=== PATIENT | female | born 1940 | race Caucasian/White ===

== ENCOUNTER → 2016-10-09 | Outpatient (CLI) | payer OTHER ==
--- NOTE | 2016-10-09 13:19 | DX ---
Chest 2 views - October 09, 2016, at 1215 hours History: Cough, wheezing, nausea, vomiting. Comparison: November 2015. Findings: Bilateral peribronchial thickening consistent with bronchitis. Linear densities in bilatera l lower lobes, probably representing subsegmental atelectasis. Pleuroparenchymal scarring in the ling rajesh, similar to the previous study. Right humerus fracture with intramedullary ankita and left total brett ulder arthroplasty noted. Heart is normal in size. No pulmonary edema or pneumothorax. Impression: 1. Probable bronchitis with bilateral lower lobe linear atelectasis. 2. No definite focal pneumonia. Findings and recommendations discussed with Dr. Christen Rodrigez at 1310 hours today.
--- NOTE | 2016-10-09 13:20 | DX ---
Single view abdomen at 1220 hours History: Nausea, vomiting, cough. Findings: Moderate stool throughout the colon, consistent with constipation. No fecal impaction. No s mall bowel distention. Previous L3 kyphoplasty. Surgical clips in the gallbladder fossa. Impression: 1. Constipation. 2. No bowel obstruction. Findings and recommendations discussed with Dr. Karin Rodrigez at 1310 hours today.
== END ==
LOC: BMCIMAGING 12:17
PROVIDERS: ATTEND Allergy & Immunology Allergy
DX: R11.2 Nausea with vomiting, unspecified (principal); R05 Cough; K59.00 Constipation, unspecified; R91.8 Other nonspecific abnormal finding of lung field

== ENCOUNTER → 2016-10-24 | Outpatient (CLI) | payer OTHER ==
--- NOTE | 2016-10-24 11:02 | CT ---
CT Brain (Without Contrast) at 1020 hours History: Headache post head trauma, fall. Comparison: None. Technique: Axial computed tomographic images of the brain without contrast. Dose reduction technique s were utilized. Findings: Ventricles, cisterns, and sulci are normal without atrophy, hydrocephalus, midline shift/h erniation, or epidural/subdural hematomas. No acute intraparenchymal hemorrhage, definite infarct, or mass effect. Bone windows demonstrate no displaced fractures. Minimal mucosal thickening in the left sphenoid sinus. Impression: 1. Normal CT brain without contrast. 2. Minimal mucosal thickening left sphenoid sinus. 3. No epidural or subdural hematoma. Findings left with Dr. Opal Herring at 1040 hour, today.
== END ==
LOC: FIMAGING 09:35
PROVIDERS: ATTEND Psychiatry & Neurology Neurology
DX: R11.2 Nausea with vomiting, unspecified (principal); R51 Headache

== ENCOUNTER → 2016-11-07 | Outpatient (CLI) | payer OTHER ==
--- NOTE | 2016-11-07 11:42 | DX ---
Bilateral Shoulder - 4 Views Indication: Evaluate healing of left shoulder arthroplasty and right proximal humerus fracture. Comparison: Left shoulder series dated September 23, 2016 and right proximal humerus fracture dated 2015. Findings: Right: The intramedullary ankita in the right humeral shaft remains well seated with proximal and distal interlocking screws. Minimal bridging callus is developing along the fracture plane. Humeral head no rmally articulates with the glenoid. Left: The left reverse shoulder arthroplasty remains well seated. Healing callus is developing along the lateral margin of the humeral component. Impression: 1. Healing proximal right humerus fracture with well seated intramedullary ankita. 2. Well seated left shoulder reverse arthroplasty with healing callus along the humeral component.
--- NOTE | 2016-11-07 13:49 | DX ---
Chest, PA and Lateral History: Cough x1 week Comparison: October 09, 2006 Findings: Lung volumes remain moderately prominent consistent with COPD/emphysema. Lungs are clear, w ithout infiltrate or consolidation. There is a stable scar at the left cardiac apex. Heart size is no rmal. There is no adenopathy or mass lesion. There is no pleural effusion or pneumothorax. Degenerati ve spurring in the mid and lower thoracic spine is stable and suggestive of DISH. The patient has a l eft total shoulder replacement and a right humeral ankita associated with a chronic fracture deformity. Impression: No evidence for pneumonia. Results called as requested.
== END ==
LOC: BMCIMAGING 10:28
PROVIDERS: ATTEND Orthopaedic Surgery
DX: S42.201D Unspecified fracture of upper end of right humerus, subsequent encounter for fracture with routine healing (principal); Z96.612 Presence of left artificial shoulder joint; R05 Cough; J45.901 Unspecified asthma with (acute) exacerbation

== ENCOUNTER → 2016-11-28 | Outpatient (CLI) | payer OTHER | LOC: BMCIMAGING 15:59 | PROVIDERS: ATTEND Orthopaedic Surgery | DX: Z09 Encounter for follow-up examination after completed treatment for conditions other than malignant neoplasm (principal); Z98.890 Other specified postprocedural states; Z96.612 Presence of left artificial shoulder joint ==

== ENCOUNTER → 2016-12-09 | Outpatient (CLI) | payer OTHER | LOC: BMCIMAGING 13:55 | DX: Z12.31 Encounter for screening mammogram for malignant neoplasm of breast (principal) | CPT/HCPCS: G0202 ==

== ENCOUNTER → 2016-12-11 | Outpatient (CLI) | payer OTHER | LOC: BMCIMAGING 13:38 | PROVIDERS: ATTEND Allergy & Immunology Allergy | DX: R09.81 Nasal congestion (principal) ==

== ENCOUNTER → 2017-01-03 | Outpatient (CLI) | payer OTHER | LOC: BMCIMAGING 12:05 | PROVIDERS: ATTEND Orthopaedic Surgery | DX: M17.11 Unilateral primary osteoarthritis, right knee (principal) ==

== ENCOUNTER → 2017-02-03 | Outpatient (CLI) | payer OTHER | LOC: BMCIMAGING 14:32 | PROVIDERS: ATTEND Allergy & Immunology Allergy | DX: Z13.820 Encounter for screening for osteoporosis (principal); M85.80 Other specified disorders of bone density and structure, unspecified site ==

== ENCOUNTER → 2017-02-06 | Outpatient (CLI) | payer OTHER | LOC: BMCIMAGING 12:24 | PROVIDERS: ATTEND Orthopaedic Surgery | DX: Z47.1 Aftercare following joint replacement surgery (principal); Z96.612 Presence of left artificial shoulder joint; S42.90XD Fracture of unspecified shoulder girdle, part unspecified, subsequent encounter for fracture with routine healing ==

== ENCOUNTER → 2017-05-09 | Outpatient (CLI) | payer OTHER | LOC: BMCIMAGING 11:42 | PROVIDERS: ATTEND Orthopaedic Surgery | DX: Z98.890 Other specified postprocedural states (principal) ==

== ENCOUNTER → 2017-08-22 | Outpatient (CLI) | payer OTHER | LOC: BMCIMAGING 08:16 | PROVIDERS: ATTEND Allergy & Immunology Allergy | DX: R14.0 Abdominal distension (gaseous) (principal); Z90.49 Acquired absence of other specified parts of digestive tract ==

== ENCOUNTER → 2017-09-15 | Outpatient (CLI) | payer OTHER | LOC: BMCIMAGING 13:31 | PROVIDERS: ATTEND Orthopaedic Surgery | DX: Z47.1 Aftercare following joint replacement surgery (principal); Z96.612 Presence of left artificial shoulder joint; Z96.611 Presence of right artificial shoulder joint ==

== ENCOUNTER → 2017-09-22 | Outpatient (CLI) | payer OTHER | LOC: BMCIMAGING 12:19 | PROVIDERS: ATTEND Allergy & Immunology Allergy | DX: Z01.811 Encounter for preprocedural respiratory examination (principal); Z86.79 Personal history of other diseases of the circulatory system ==

== ENCOUNTER → 2017-09-26 | Outpatient (CLI) | payer OTHER | LOC: FIMAGING 11:17 | PROVIDERS: ATTEND Orthopaedic Surgery | DX: Z01.818 Encounter for other preprocedural examination (principal); M17.11 Unilateral primary osteoarthritis, right knee ==

== ENCOUNTER 2017-10-20 11:22 | Inpatient (IN) | payer OTHER ==
--- NOTE | 2017-10-20 07:02 | PDHPUP ---
History & Physical Update H&P update statement: This history and physical update is based on an assessment of the patient which was completed after admission or registration (within 24 hours), but prior to the surgery/procedure.
--- NOTE | 2017-10-20 07:04 | PDIAF ---
- Diagnosis Diagnosis: right knee djd Code Status: Full Code - Medication Management Discharge Medications: Medications to Continue on Transfer Ascorbic Acid [Vitamin C 500 mg (*)] 500 mg PO DAILY 10/07/12 [Last Taken 18:00] Furosemide [Lasix 40 MG (*)] 40 mg PO BID 10/07/12 [Last Taken 09/20/16] Losartan Potassium [Cozaar 50 mg (*)] 50 mg PO HS 10/07/12 [Last Taken 09/19/16] Ranitidine HCl [Ranitidine HCl 150 mg] 150 mg PO BID 10/07/12 [Last Taken ] Acetaminophen [Tylenol 325mg (*)] 650 mg PO Q6 PRN 01/18/13 [Last Taken 18:00] Aspirin EC [Aspirin EC 81 mg (*)] 81 mg PO HS 01/18/13 [Last Taken 09/19/16] Albuterol [Proventil Inhaler HFA (*)] 2 puffs IH Q4 PRN 01/21/13 [Last Taken 08/19 08:00] Loratadine [Claritin 10 mg] 10 mg PO DAILY PRN 01/21/13 [Last Taken 04/13/13] Potassium Cl [Klor-Con 10 meq (RX)] 10 meq PO DAILY 04/06/13 [Last Taken ] Calcium Carbonate [Oyster Shell Calcium 500 mg (*)] 500 mg PO DAILY 08/16/14 [ Last Taken 08/16/14 08:00] Multivitamins [Multivitamin (*)] 1 tab PO DAILY 08/16/14 [Last Taken 08/16/14 08 :00] [place]-3 Fatty Acids [Fish Oil 1000 mg (*)] 1,000 mg PO DAILY 08/16/14 [Last Taken 08/16/14 08:00] Cholecalciferol Vit D3 [Vitamin D3 (*)] 5,000 units PO DAILY 09/21/16 [Last Taken Unknown] Psyllium Husk (with Sugar) [Metamucil Packet] 1 each PO DAILY PRN 09/21/16 [ Last Taken Unknown] Spironolactone [Aldactone] 50 mg PO DAILY 09/21/16 [Last Taken Unknown] Lactulose [Cephulac 20 gm/30 ml oral soln (*)] 20 gm PO TID PRN #0 ml 09/26/16 [ Last Taken Unknown] Magnesium Hydroxide [Milk of Magnesia (*)] 30 ml PO DAILY PRN #0 udcup 09/26/16 [Last Taken Unknown] Ondansetron Odt [Zofran Odt 4 mg (*)] 4 mg PO Q4HRS PRN #0 tab 09/26/16 [Last Taken Unknown] Sennosides/Docusate Sodium [Senokot-S] 1 - 2 tab PO BID #0 tab 09/26/16 [Last Taken Unknown] Fluticasone/Salmeter 250/50Mcg [Advair 250/50 (*)] 1 puffs IH BID 09/23/17 [ Last Taken Unknown] Lidocaine 5% [Lidoderm 5% Patch (*)] 1 ea TD DAILY PRN 09/23/17 [Last Taken Unknown] Methocarbamol [Robaxin 750 mg (*)] 750 mg PO DAILY PRN 09/23/17 [Last Taken Unknown] Mupirocin 2% [Bactroban 2%] 1 marifer NS BID PRN 09/23/17 [Last Taken Unknown] Polyethylene Glycol 3350 [Miralax 17 gm (*)] 17 gm PO BID PRN 09/23/17 [Last Taken Unknown] Promethazine HCl [Phenergan 25mg (*)] 25 mg PO Q6HRS PRN 09/23/17 [Last Taken Unknown] Rosuvastatin Calcium [Crestor 40mg (*)] 40 mg PO HS 09/23/17 [Last Taken Unknown ] Discharge Medications: Refer to the Discharge Home Medication list for PRN reason. - Orders Services needed: Physical Therapy Activity/Weight Bearing Restrictions: wbat. rom as tolerated. daily dressing changes. may shower without bandage. no soaking or immersion. seek attn for increasing pain, sob, cp, leg pain, or other focal complaint. f/u at two weeks as previously scheduled - Follow Up Care Current Providers and Referrals: Karin Rodrigez MD [Primary Care Provider] -
[2017-10-20] MEDS ORDERED: FAMOTIDINE 20 MG TAB PO ONE (12:54)
[2017-10-20] MEDS ORDERED: LR 1,000 ML IV ONE (12:54)
[2017-10-20] MEDS ORDERED: ceFAZolin 2 GM/SWFI 2 GM/20 ML SYR IVP ONE (12:54)
[2017-10-20] MEDS ORDERED: LIDOCAINE 1% 2 ML INJ ID PRN (12:54)
[2017-10-20] MEDS ORDERED: ACETAMINOPHEN 325 MG TAB PO ONE (12:54)
[2017-10-20] MEDS ORDERED: TRANEXAMIC ACID 890 MG in NS 100 ML IV ONE (13:00)
[2017-10-20] MEDS ORDERED: ROPIVACAINE 0.2% 80 MG, EPINEPHrine 0.2 MG, KETOROLAC TROMETHAMINE 30 MG, morphINE 10 M... IU ONE (13:00)
--- NOTE | 2017-10-20 14:09 | PDANEPAE ---
ANE History of Present Illness 77 year old with right knee arthritis ANE Past Medical History - Cardiovascular History Hx Hypertension: Yes Hx Arrhythmias: No Hx Chest Pain: No Hx Coronary Artery / Peripheral Vascular Disease: Yes Hx CHF / Valvular Disease: No Hx Palpitations: No Cardiovascular History Comment: cad- stent x1. hyperlipidemia. see's Dr. Shin at [facility] [place] - Pulmonary History Hx Asthma/Reactive Airway Disease: Yes Hx Recent Upper Respiratory Infection: No Hx Oxygen in Use at Home: Yes O2 in Use at Home (L/minute): 2l at [facility] Hx Sleep Apnea: Yes Sleep Apnea Screening Result - Last Documented: Positive Pulmonary History Comment: uses 02 and cpap at [facility]- instructed pt to bring to hospital. asthma is worse in cold weather - Neurologic History Hx Cerebrovascular Accident: No Hx Seizures: No Hx Dementia: No - Endocrine History Hx Diabetes: No - Renal History Hx Renal Disorders: No - Liver History Hx Hepatic Disorders: No - Neurological & Psychiatric Hx Hx Neurological and Psychiatric Disorders: No - Cancer History Hx Cancer: Yes Cancer History Comment: uterine ca- hysterectomy - Congenital Disorder History Hx Congenital Disorders: No - GI History Hx Gastrointestinal Disorders: Yes Gastrointestinal History Comment: reflux. chronic constipation - Other Health History Other Health History: wears glasses. dry skin - Chronic Pain History Chronic Pain: Yes (osteoarthritis) - Surgical History Prior Surgeries: left tka. [place]. uterine ca- hysterectomy. bilateral arm repair from fx's. right shoulder replacement ANE Review of Systems Review of systems is: negative Review of Systems: - Exercise capacity METS (RN): 3 METS ANE Patient History - Allergies Allergies/Adverse Reactions: ENVIRONMENTAL Allergy (Mild, Uncoded 09/30/17 11:53) STUFFY NOSE/PLUGGED EARS - Home Medications Home medications: home medication list seen and reviewed Home Medications: Ascorbic Acid [Vitamin C 500 mg (*)] 500 mg PO DAILY 10/07/12 [Last Taken ] Furosemide [Lasix 40 MG (*)] 40 mg PO BID 10/07/12 [Last Taken 10/19/17 14:00] Losartan Potassium [Cozaar 50 mg (*)] 50 mg PO HS 10/07/12 [Last Taken 10/19/17 22:30] Ranitidine HCl [Ranitidine HCl 150 mg] 150 mg PO BID 10/07/12 [Last Taken 08:00] Acetaminophen [Tylenol 325mg (*)] 650 mg PO Q6 PRN 01/18/13 [Last Taken 08:00] Aspirin EC [Aspirin EC 81 mg (*)] 81 mg PO HS 01/18/13 [Last Taken 10/15/17] Albuterol [Proventil Inhaler HFA (*)] 2 puffs IH Q4 PRN 01/21/13 [Last Taken 08/23] Loratadine [Claritin 10 mg] 10 mg PO DAILY PRN 01/21/13 [Last Taken 10/15/17] Potassium Cl [Klor-Con 10 meq (RX)] 10 meq PO DAILY 04/06/13 [Last Taken 22:30] Calcium Carbonate [Oyster Shell Calcium 500 mg (*)] 500 mg PO DAILY 08/16/14 [ Last Taken 10/15/17] Multivitamins [Multivitamin (*)] 1 tab PO DAILY 08/16/14 [Last Taken 10/15/17] [place]-3 Fatty Acids [Fish Oil 1000 mg (*)] 1,000 mg PO DAILY 08/16/14 [Last Taken 10/15/17] Cholecalciferol Vit D3 [Vitamin D3 (*)] 5,000 units PO DAILY 09/21/16 [Last Taken 10/15/17] Psyllium Husk (with Sugar) [Metamucil Packet] 1 each PO DAILY PRN 09/21/16 [ Last Taken 09/22/17] Spironolactone [Aldactone] 50 mg PO DAILY 09/21/16 [Last Taken 10/19/17 09:00] Fluticasone/Salmeter 250/50Mcg [Advair 250/50 (*)] 1 puffs IH BID 09/23/17 [ Last Taken 10/20/17 08:30] Lidocaine 5% [Lidoderm 5% Patch (*)] 1 ea TD DAILY PRN 09/23/17 [Last Taken 07/23] Methocarbamol [Robaxin 750 mg (*)] 750 mg PO DAILY PRN 09/23/17 [Last Taken 07/23] Mupirocin 2% [Bactroban 2%] 1 marifer NS BID PRN 09/23/17 [Last Taken 10/20/17 08:00 ] Polyethylene Glycol 3350 [Miralax 17 gm (*)] 17 gm PO BID PRN 09/23/17 [Last Taken 10/15/17] Promethazine HCl [Phenergan 25mg (*)] 25 mg PO Q6HRS PRN 09/23/17 [Last Taken ] Rosuvastatin Calcium [Crestor 40mg (*)] 40 mg PO HS 09/23/17 [Last Taken 22:30] - NPO status NPO Since - Liquids (Date): 10/20/17 NPO Since - Liquids (Time): 09:00 NPO Since - Solids (Date): 10/19/17 NPO Since - Solids (Time): 23:00 - Smoking Hx Smoking Status: Never smoked - Family Anes Hx Family Hx Anesthesia Complications: none ANE Labs/Vital Signs - Vital Signs Blood Pressure: 122/54 Heart Rate: 72 Respiratory Rate: 20 O2 Sat (%): 95 Height: 165.1 cm Weight: 88.904 kg ANE Physical Exam - Airway Mallampati Score: Class 2 Mouth exam: normal dental/mouth exam - Pulmonary Pulmonary: no respiratory distress - Cardiovascular Cardiovascular: regular rate and rhythym - ASA Status ASA Status: II ANE Anesthesia Plan Anesthesia Plan: spinal
[2017-10-20] MEDS ORDERED: MIDAZOLAM 2 MG/2 ML VIAL IVP ONE (14:16)
[2017-10-20] MEDS ORDERED: THROMBIN (BOVINE) 5,000 UNIT VIAL TP ONE (15:44)
[2017-10-20] MEDS ORDERED: CALCIUM CHLORIDE 1 GM/10 ML INJ ONE (15:44)
[2017-10-20] MEDS ORDERED: ceFAZolin 1 GM/5 ML SYR ONE (15:44)
[2017-10-20] MEDS ORDERED: fentaNYL 100 MCG/2 ML INJ ONE (17:03)
[2017-10-20] MEDS ORDERED: PROPOFOL/EMULSION 500 MG/50 ML BOTTLE IV ONE (17:04)
[2017-10-20] MEDS ORDERED: DIPHENOXYLATE/ATROPINE LOMOTIL 1 TAB PO PRN (18:07)
[2017-10-20] MEDS ORDERED: TEMAZEPAM 15 MG CAP PO PRN (18:07)
[2017-10-20] MEDS ORDERED: BISACODYL 10 MG SUPP PR PRN (18:07)
[2017-10-20] MEDS ORDERED: diphenhydrAMINE 25 MG CAP PO PRN (18:07)
[2017-10-20] MEDS ORDERED: PROMETHAZINE HCL 25 MG/ML INJ IVP PRN ×2 (18:07→18:54)
[2017-10-20] MEDS ORDERED: PROMETHAZINE HCL 25 MG SUPPR PR PRN (18:07)
[2017-10-20] MEDS ORDERED: METOCLOPRAMIDE 10 MG/2 ML VIAL IVP PRN (18:07)
[2017-10-20] MEDS ORDERED: MAGNESIUM HYDROXIDE 30 ML UDCUP PO PRN (18:07)
[2017-10-20] MEDS ORDERED: LACTULOSE 20 GM/30 ML UDCUP PO PRN ×2 (18:07→18:09)
[2017-10-20] MEDS ORDERED: LR 1,000 ML IV SCH (18:30)
[2017-10-20] MEDS ORDERED: ONDANSETRON 4 MG/2 ML VIAL IVP PRN (18:54)
[2017-10-20] MEDS ORDERED: fentaNYL 100 MCG/2 ML INJ IVP PRN (18:54)
[2017-10-20] MEDS ORDERED: NALOXONE HCL 0.4 MG/ML INJ IVP PRN (18:54)
--- NOTE | 2017-10-20 18:54 | POSTANESTH ---
Post Anesthetic Evaluation Cardiovascular Status: Normal, Stable Respiratory Status: Normal, Stable Level of Consciousness/Mental Status: Can Participate in Eval Pain Control: Adequate, Prn Tx Ordered Nausea/Vomiting Control: Adequate, Prn Tx Ordered
[2017-10-20] MEDS: ROSUVASTATIN CALCIUM 40 MG TAB PO SCH (20:49)
[2017-10-20] MEDS: SENNOSIDES/DOCUSATE SODIUM TAB PO SCH (20:49)
[2017-10-20] MEDS: oxyCODONE IR 5 MG TAB PO PRN (20:49)
[2017-10-20] MEDS: ASPIRIN 325 MG TAB PO SCH (20:49)
[2017-10-20] MEDS: LOSARTAN POTASSIUM 50 MG TAB PO SCH (20:50)
[2017-10-20] MEDS: FUROSEMIDE 40 MG TAB PO SCH (20:50)
[2017-10-20] MEDS: FAMOTIDINE 20 MG TAB PO SCH (20:56)
[2017-10-20] MEDS: ACETAMINOPHEN 325 MG TAB PO SCH (23:03)
[2017-10-20] MEDS: ONDANSETRON DISINTEGRATING 4 MG TAB PO PRN (23:46)
[2017-10-21] MEDS: TRANEXAMIC ACID 650 MG TAB PO SCH ×3 (00:53→17:47)
[2017-10-21] MEDS: ceFAZolin 2 GM/DEXTROSE 100 ML IV SCH ×2 (00:53→08:30)
[2017-10-21] MEDS: oxyCODONE IR 5 MG TAB PO PRN ×4 (04:51→18:29)
[2017-10-21] MEDS: ACETAMINOPHEN 325 MG TAB PO SCH ×3 (04:52→17:46)
[2017-10-21] MEDS: FUROSEMIDE 40 MG TAB PO SCH ×2 (07:32→20:32)
[2017-10-21] MEDS: ASPIRIN 325 MG TAB PO SCH (07:35)
[2017-10-21] MEDS: SPIRONOLACTONE 25 MG TAB PO SCH (07:37)
[2017-10-21] MEDS: SENNOSIDES/DOCUSATE SODIUM TAB PO SCH ×2 (07:37→20:32)
[2017-10-21] MEDS: POTASSIUM CL 10 MEQ TAB PO SCH (07:38)
[2017-10-21] MEDS: FAMOTIDINE 20 MG TAB PO SCH ×2 (07:39→20:32)
[2017-10-21] MEDS: POLYETHYLENE GLYCOL 3350 17 GM PKT PO PRN (07:40)
--- NOTE | 2017-10-21 07:49 | SOAPPROG ---
SOAP Progress Note Assessment/Plan: Assessment: s/p right tka Plan:wbat rom as tolerated d/c home\ dvt precautions 10/21/17 07:47 Subjective: min pain no cp or sob sanket po Objective: Vital Signs Temp Pulse Resp BP Pulse Ox 36.4 C 73 18 115/48 L 99 10/21/17 04:00 10/21/17 04:00 10/21/17 04:00 10/21/17 04:00 10/21/17 04:00 Laboratory Results 10/21/17 04:38 10/20/17 10/21/17 10/22/17 05:59 05:59 05:59 Intake Total 1760 Output Total 525 Balance 1235 dressing intact intact pf,df, ehl toes warm and pink neg homans victor hugo xrays stable alignment no fx or lucency ICD10 Worksheet Patient Problems: Problems Problem Status Onset Severe persistent asthma Active Bilateral humeral fractures Acute SOB (shortness of breath) on exertion Acute
[2017-10-21] MEDS: ONDANSETRON DISINTEGRATING 4 MG TAB PO PRN (08:01)
[2017-10-21] MEDS ORDERED: CETIRIZINE 10 MG TAB PO PRN (09:00)
[2017-10-21] MEDS ORDERED: MUPIROCIN 2% 22 GM OINT TP PRN (09:00)
[2017-10-21] MEDS: traMADol 50 MG TAB PO PRN (13:55)
[2017-10-21] MEDS: DIAZEPAM 5 MG TAB PO PRN (13:55)
[2017-10-21] MEDS: KETOROLAC 15 MG/1 ML SDV IVP PRN ×2 (13:56→20:31)
[2017-10-21] MEDS: ONDANSETRON 4 MG/2 ML VIAL IVP PRN ×2 (13:59→20:31)
--- NOTE | 2017-10-21 16:43 | ASMTCMCOM ---
CM Note CM Note Notes: Pt s/p R total knee. OT rec SNF, PT rec HHC. Chart review indicates pt has previously been in [facility] and lives w . Attempted to talk to pt about d/c planning twice and she was soundly sleeping, CM will follow up in am. Date Signed: 10/21/2017 04:42 PM Electronically Signed By:CHARLA Albarado
[2017-10-21] MEDS: LOSARTAN POTASSIUM 50 MG TAB PO SCH (20:32)
[2017-10-21] MEDS: ROSUVASTATIN CALCIUM 40 MG TAB PO SCH (20:35)
[2017-10-21] MEDS ORDERED: NS 500 ML IV ONE (22:00)
[2017-10-22] MEDS: ACETAMINOPHEN 325 MG TAB PO SCH ×4 (00:26→17:53)
[2017-10-22] MEDS: oxyCODONE IR 5 MG TAB PO PRN ×4 (04:37→20:11)
[2017-10-22] MEDS: KETOROLAC 15 MG/1 ML SDV IVP PRN ×2 (04:37→10:51)
--- NOTE | 2017-10-22 07:11 | SOAPPROG ---
SOAP Progress Note Assessment/Plan: Assessment: s/p right tka Plan:wbat rom as tolerated wants to go home not snf, but not cleared by pt minimal movement yesterday dvt precautions 10/21/17 07:47 10/22/17 07:10 Subjective: not moving well no cp or sob sanket po wants to go home tomorrow not snf Objective: Vital Signs Temp Pulse Resp BP Pulse Ox 37.1 C 77 16 107/53 L 97 10/22/17 04:00 10/22/17 04:00 10/22/17 04:00 10/22/17 04:00 10/22/17 04:00 Laboratory Results 10/22/17 04:16 10/21/17 10/22/17 10/23/17 05:59 05:59 05:59 Intake Total 1760 1850 Output Total 525 1525 Balance 1235 325 ICD10 Worksheet Patient Problems: Problems Problem Status Onset Severe persistent asthma Active Bilateral humeral fractures Acute SOB (shortness of breath) on exertion Acute
[2017-10-22] MEDS: ONDANSETRON DISINTEGRATING 4 MG TAB PO PRN ×2 (07:27→12:05)
[2017-10-22] MEDS: SENNOSIDES/DOCUSATE SODIUM TAB PO SCH ×2 (07:28→20:11)
[2017-10-22] MEDS: FUROSEMIDE 40 MG TAB PO SCH ×2 (07:28→20:10)
[2017-10-22] MEDS: ASPIRIN 325 MG TAB PO SCH (07:28)
[2017-10-22] MEDS: POTASSIUM CL 10 MEQ TAB PO SCH (07:29)
[2017-10-22] MEDS: POLYETHYLENE GLYCOL 3350 17 GM PKT PO PRN (07:30)
[2017-10-22] MEDS: FAMOTIDINE 20 MG TAB PO SCH ×2 (07:30→20:10)
[2017-10-22] MEDS: SPIRONOLACTONE 25 MG TAB PO SCH (07:30)
[2017-10-22] MEDS: DIAZEPAM 5 MG TAB PO PRN ×2 (08:49→17:53)
[2017-10-22] MEDS: traMADol 50 MG TAB PO PRN (10:50)
--- NOTE | 2017-10-22 12:29 | ASMTCMCOM ---
CM Note CM Note Notes: PT rec SNF, after working with PT pt reports she wants to d/c to [facility] (a [facility] waiver approved facility). Referral sent in Allscripts. D/c plan of care: SNF when medically stable. Date Signed: 10/22/2017 12:28 PM Electronically Signed By:CHARLA Albarado
[2017-10-22] MEDS: ROSUVASTATIN CALCIUM 40 MG TAB PO SCH (20:05)
[2017-10-22] MEDS: LOSARTAN POTASSIUM 50 MG TAB PO SCH (20:10)
[2017-10-23] MEDS: ACETAMINOPHEN 325 MG TAB PO SCH ×3 (01:03→12:09)
[2017-10-23] MEDS: oxyCODONE IR 5 MG TAB PO PRN ×2 (05:11→12:09)
[2017-10-23 08:52] VITALS: BP 116/48; TEMP 98.4
[2017-10-23 09:01] VITALS: PULSE 82; RESP 16; O2SAT 98
[2017-10-23] MEDS: FAMOTIDINE 20 MG TAB PO SCH (09:25)
[2017-10-23] MEDS: SPIRONOLACTONE 25 MG TAB PO SCH (09:25)
[2017-10-23] MEDS: POTASSIUM CL 10 MEQ TAB PO SCH (09:26)
[2017-10-23] MEDS: ASPIRIN 325 MG TAB PO SCH (09:26)
[2017-10-23] MEDS: SENNOSIDES/DOCUSATE SODIUM TAB PO SCH (09:26)
[2017-10-23] MEDS: FUROSEMIDE 40 MG TAB PO SCH (09:26)
--- NOTE | 2017-10-23 11:08 | SOAPPROG ---
SOAP Progress Note Assessment/Plan: Assessment: s/p right tka Plan:wbat rom as tolerated wants to go home not snf, but not cleared by pt minimal movement yesterday to snf slow moving with pt dvt precautions 10/21/17 07:47 10/22/17 07:10 10/23/17 11:07 Subjective: struggling with pt mod pain no cp or sob Objective: Vital Signs Temp Pulse Resp BP Pulse Ox 36.9 C 82 16 116/48 L 98 10/23/17 08:46 10/23/17 08:46 10/23/17 08:46 10/23/17 08:46 10/23/17 08:46 Laboratory Results 10/22/17 04:16 10/22/17 10/23/17 10/24/17 05:59 05:59 05:59 Intake Total 1850 950 Output Total 1525 Balance 325 950 dressing intact intact pf,mdf,ehl toes warm and pink neg homans victor hugo ICD10 Worksheet Patient Problems: Problems Problem Status Onset Severe persistent asthma Active Bilateral humeral fractures Acute SOB (shortness of breath) on exertion Acute
--- NOTE | 2017-10-23 11:10 | PDIAF ---
- Diagnosis Diagnosis: right knee djd Code Status: Full Code - Medication Management Discharge Medications: Medications to Continue on Transfer Ascorbic Acid [Vitamin C 500 mg (*)] 500 mg PO DAILY 10/07/12 [Last Taken ] Furosemide [Lasix 40 MG (*)] 40 mg PO BID 10/07/12 [Last Taken 10/19/17 14:00] Losartan Potassium [Cozaar 50 mg (*)] 50 mg PO HS 10/07/12 [Last Taken 10/19/17 22:30] Ranitidine HCl [Ranitidine HCl 150 mg] 150 mg PO BID 10/07/12 [Last Taken 08:00] Acetaminophen [Tylenol 325mg (*)] 650 mg PO Q6 PRN 01/18/13 [Last Taken 08:00] Aspirin EC [Aspirin EC 81 mg (*)] 81 mg PO HS 01/18/13 [Last Taken 10/15/17] Albuterol [Proventil Inhaler HFA (*)] 2 puffs IH Q4 PRN 01/21/13 [Last Taken 08/23] Loratadine [Claritin 10 mg] 10 mg PO DAILY PRN 01/21/13 [Last Taken 10/15/17] Potassium Cl [Klor-Con 10 meq (RX)] 10 meq PO DAILY 04/06/13 [Last Taken 22:30] Calcium Carbonate [Oyster Shell Calcium 500 mg (*)] 500 mg PO DAILY 08/16/14 [ Last Taken 10/15/17] Multivitamins [Multivitamin (*)] 1 tab PO DAILY 08/16/14 [Last Taken 10/15/17] [place]-3 Fatty Acids [Fish Oil 1000 mg (*)] 1,000 mg PO DAILY 08/16/14 [Last Taken 10/15/17] Cholecalciferol Vit D3 [Vitamin D3 (*)] 5,000 units PO DAILY 09/21/16 [Last Taken 10/15/17] Psyllium Husk (with Sugar) [Metamucil Packet] 1 each PO DAILY PRN 09/21/16 [ Last Taken 09/22/17] Spironolactone [Aldactone] 50 mg PO DAILY 09/21/16 [Last Taken 10/19/17 09:00] Lactulose [Cephulac 20 gm/30 ml oral soln (*)] 20 gm PO TID PRN #0 ml 09/26/16 [ Last Taken 10/15/17] Magnesium Hydroxide [Milk of Magnesia (*)] 30 ml PO DAILY PRN #0 udcup 09/26/16 [Last Taken 10/15/17] Ondansetron Odt [Zofran Odt 4 mg (*)] 4 mg PO Q4HRS PRN #0 tab 09/26/16 [Last Taken 10/15/17] Sennosides/Docusate Sodium [Senokot-S] 1 - 2 tab PO BID #0 tab 09/26/16 [Last Taken 10/17/17] Fluticasone/Salmeter 250/50Mcg [Advair 250/50 (*)] 1 puffs IH BID 09/23/17 [ Last Taken 10/20/17 08:30] Lidocaine 5% [Lidoderm 5% Patch (*)] 1 ea TD DAILY PRN 09/23/17 [Last Taken 07/23] Methocarbamol [Robaxin 750 mg (*)] 750 mg PO DAILY PRN 09/23/17 [Last Taken 07/23] Mupirocin 2% [Bactroban 2%] 1 marifer NS BID PRN 09/23/17 [Last Taken 10/20/17 08:00 ] Polyethylene Glycol 3350 [Miralax 17 gm (*)] 17 gm PO BID PRN 09/23/17 [Last Taken 10/15/17] Promethazine HCl [Phenergan 25mg (*)] 25 mg PO Q6HRS PRN 09/23/17 [Last Taken ] Rosuvastatin Calcium [Crestor 40mg (*)] 40 mg PO HS 09/23/17 [Last Taken 22:30] Aspirin [Aspirin 325 mg (*)] 325 mg PO DAILY tab 10/23/17 [Last Taken Unknown] oxyCODONE IR [Oxycodone Ir (*)] 5 - 10 mg PO Q3HRS PRN #70 tab 10/23/17 [Last Taken Unknown] Discharge Medications: Refer to the Discharge Home Medication list for PRN reason. - Orders Services needed: Physical Therapy Diet Recommendation: no restrictions on diet Diet Texture: Regular Texture Diet Activity/Weight Bearing Restrictions: wbat. rom as tolerated. daily dressing changes. may shower without bandage. no soaking or immersion. seek attn for increasing pain, sob, cp, leg pain, or other focal complaint. f/u at two weeks as previously scheduled - Follow Up Care Current Providers and Referrals: Karin Rodrigez MD [Primary Care Provider] -
[2017-10-23] MEDS: ONDANSETRON DISINTEGRATING 4 MG TAB PO PRN (12:09)
--- NOTE | 2017-10-23 13:52 | ASMTCMCOM ---
CM Note CM Note Notes: Pt medically stable for d/c to [facility]. Orders sent in Allscripts. Mykel kelley [facility] set up wc transport and notified 3N unit of time. Date Signed: 10/23/2017 01:51 PM Electronically Signed By:CHARLA Albarado
--- NOTE | 2017-10-23 13:59 | ASDISCHSUM ---
Discharge Information Plan Status:SNF Medically Cleared to Leave: Discharge Date:10/23/2017 12:22 PM CM D/C Disposition:Senior Living Facility ADT D/C Disposition:Senior Living Facility Projected Discharge Date:10/23/2017 11:00 AM Transportation at D/C:Wheelchair Van Discharge Delay Reason: Follow-Up Date:10/23/2017 11:00 AM Discharge Slot: Final Diagnosis: Placement Information Referral Type:*Retirement/SNF Referral ID:[id number] Provider Name:[facility] Address 1:[address] Address 2: City:[place] Selection Factors: State:[place] Patient Contact Information Contact Name:ABBY Relationship: Address:[address] Work Phone: City:[place] Alternate Phone: State/Zip Code:[place] [address] Email: Financial Information Financial Class: Primary Plan Desc:MEDICARE INPATIENT Primary Plan Number:[id number] Secondary Plan Desc:[facility] Secondary Plan Number:[id number] Assessment Information [facility] CM Progress Note CM Note CM Note Notes: Pt s/p R total knee. OT rec SNF, PT rec HHC. Chart review indicates pt has previously been in [facility] and lives w . Attempted to talk to pt about d/c planning twice and she was soundly sleeping, CM will follow up in am. Date Signed: 10/21/2017 04:42 PM Electronically Signed By:CHARLA Albarado [facility] CM Progress Note CM Note CM Note Notes: PT rec SNF, after working with PT pt reports she wants to d/c to [facility] (a [facility] waiver approved facility). Referral sent in Allscripts. D/c plan of care: SNF when medically stable. Date Signed: 10/22/2017 12:28 PM Electronically Signed By:CHARLA Albarado [facility] CM Progress Note CM Note CM Note Notes: Pt medically stable for d/c to [facility]. Orders sent in Allscripts. Mykel kelley [facility] set up wc transport and notified 3N unit of time. Date Signed: 10/23/2017 01:51 PM Electronically Signed By:CHARAL Albarado Intervention Information Intervention Type:*Incorrect Registration Date of Service:10/21/2017 10:17 AM Patient Type:Inpatient Staff Member:HERMINIA Doss Courtney Hours: Discipline: Severity: Comment:
== END 2017-10-23 12:22 | DRG 470 ==
LOC: F3N 12:04 → INTOOBSV 12:04 → F3N 20:01 → OBSVTOIN 10-21 16:21
PROVIDERS: ADMIT Orthopaedic Surgery; ATTEND Orthopaedic Surgery
PROC: 0SRC0JZ Replacement of Right Knee Joint with Synthetic Substitute, Open Approach (ICD-10-PCS; principal; 2017-10-21)
DX: M17.11 Unilateral primary osteoarthritis, right knee (principal)
CPT/HCPCS: 97110-GP; 97116-GP; 97161-GP; 97166-GO; 97530-GP; 97535-GO; G8978-GP-CL; G8979-GP-CI; G8979-GP-CJ; G8980-GP-CJ; G8987-GO-CK; G8988-GO-CI; J0171; J0690; J1885; J2250; J2405; J2550; J2704; J2795; J3010

== ENCOUNTER → 2017-11-26 | Outpatient (CLI) | payer OTHER | LOC: BMCIMAGING 12:02 | PROVIDERS: ATTEND Physician Assistant | DX: Z47.1 Aftercare following joint replacement surgery (principal); M25.561 Pain in right knee; M79.89 Other specified soft tissue disorders; Z96.651 Presence of right artificial knee joint ==

== ENCOUNTER → 2017-12-11 | Outpatient (CLI) | payer OTHER | LOC: BMCIMAGING 12:40 | PROVIDERS: ATTEND Allergy & Immunology Allergy | DX: Z12.31 Encounter for screening mammogram for malignant neoplasm of breast (principal) ==

== ENCOUNTER → 2017-12-24 | Outpatient (CLI) | payer OTHER | LOC: BMCIMAGING 12:14 | PROVIDERS: ATTEND Allergy & Immunology Allergy | DX: R22.41 Localized swelling, mass and lump, right lower limb (principal); Z86.718 Personal history of other venous thrombosis and embolism; Z96.651 Presence of right artificial knee joint ==

== ENCOUNTER → 2018-01-06 | Outpatient (CLI) | payer OTHER | LOC: BMCIMAGING 13:56 | PROVIDERS: ATTEND Orthopaedic Surgery | DX: Z47.1 Aftercare following joint replacement surgery (principal); Z96.651 Presence of right artificial knee joint ==

== ENCOUNTER → 2018-01-12 | Outpatient (CLI) | payer OTHER | LOC: BMCIMAGING 15:47 | PROVIDERS: ATTEND Allergy & Immunology Allergy | DX: E04.2 Nontoxic multinodular goiter (principal) | CPT/HCPCS: 76536-PO ==

== ENCOUNTER → 2018-08-17 | Outpatient (CLI) | payer OTHER | LOC: BMCIMAGING 11:41 | PROVIDERS: ATTEND Allergy & Immunology Allergy | DX: J45.41 Moderate persistent asthma with (acute) exacerbation (principal) | CPT/HCPCS: 86606-90 ==

== ENCOUNTER → 2018-10-26 | Outpatient (CLI) | payer OTHER | LOC: BMCIMAGING 11:31 | PROVIDERS: ATTEND Orthopaedic Surgery | DX: Z47.1 Aftercare following joint replacement surgery (principal); Z96.653 Presence of artificial knee joint, bilateral; S42.331D Displaced oblique fracture of shaft of humerus, right arm, subsequent encounter for fracture with routine healing ==

== ENCOUNTER → 2018-11-23 | Outpatient (CLI) | payer OTHER | LOC: BMCIMAGING 08:22 | PROVIDERS: ATTEND Allergy & Immunology Allergy | DX: R14.0 Abdominal distension (gaseous) (principal) ==

== ENCOUNTER → 2018-12-07 | Outpatient (CLI) | payer OTHER | LOC: BMCIMAGING 12:34 | PROVIDERS: ATTEND Allergy & Immunology Allergy | DX: Z12.31 Encounter for screening mammogram for malignant neoplasm of breast (principal) ==

== ENCOUNTER → 2018-12-23 | Outpatient (CLI) | payer OTHER | LOC: BMCIMAGING 09:55 | PROVIDERS: ATTEND Orthopaedic Surgery | DX: M16.0 Bilateral primary osteoarthritis of hip (principal); M51.36 Other intervertebral disc degeneration, lumbar region; M47.816 Spondylosis without myelopathy or radiculopathy, lumbar region ==

== ENCOUNTER → 2019-01-08 | Outpatient (CLI) | payer OTHER | LOC: BMCIMAGING 13:23 | PROVIDERS: ATTEND Allergy & Immunology Allergy | DX: Z13.820 Encounter for screening for osteoporosis (principal); M81.0 Age-related osteoporosis without current pathological fracture; Z79.52 Long term (current) use of systemic steroids ==

== ENCOUNTER → 2019-02-17 | Outpatient (CLI) | payer OTHER | LOC: BMCIMAGING 12:15 | PROVIDERS: ATTEND Allergy & Immunology Allergy | DX: R14.0 Abdominal distension (gaseous) (principal); K59.00 Constipation, unspecified ==